=== PATIENT | female | born 1970 | race Two or more races ===

== ENCOUNTER 2019-05-01 15:13 | Emergency (ER) | payer BC, OTHER ==
[~2019-05-01] VITALS: Ht 157.5 cm; Wt 81.6 kg
[2019-05-01] MEDS ORDERED: cloNIDine HCL 0.1 MG TAB PO ONE (15:30)
[2019-05-01 15:45] VITALS: BP 175/88
[2019-05-01 15:55] LABS: Basophils # (auto) 0 uL; Basophils % (auto) 0.6 % (0.0-2.0); Eosinophils # (auto) 0.1 uL; Eosinophils % (auto) 1.8 % (0.0-7.0); Hematocrit 34.8 % (36.0-46.0); Lymphocytes % (auto) 24.2 % (10.0-50.0); Mean Corpuscular Hemoglobin 25.1 pg (28.0-32.0); Mean Corpuscular Hgb Conc. 31.6 g/dL (32.0-36.0); Mean Corpuscular Volume 79.4 fL (80.0-100.0); Monocytes % (auto) 11.5 % (0.0-12.0); Neutrophils # (auto) 5.2 uL; Neutrophils % (auto) 61.9 % (37.0-80.0); Platelet Count (auto) 273 10^3/uL (140-450); Red Blood Cells 4.39 10^6/uL (4.0-5.20); Red Cell Distribution Width 18.4 % (11.8-14.3); White Blood Cell 8.4 10^3/uL (4.4-10.8)
[2019-05-01 16:09] LABS: INR 0.99 (0.9-1.15); Partial Thromboplastin Time 23.6 sec (23.64-32.05)
[2019-05-01 16:14] LABS: Albumin 3.9 g/dL (3.4-5.0); Anion Gap 5 (5-15); Blood Urea Nitrogen 10 mg/dL (7-18); Calcium 8.8 mg/dL (8.5-10.1); Carbon Dioxide 24 mmol/L (21-32); Chloride 109 mmol/L (98-107); Glucose 94 mg/dL (74-106); Sodium 138 mmol/L (136-145)
[2019-05-01 16:19] LABS: Alanine Aminotransferase 28 U/L (13-56); Alkaline Phosphatase 77 U/L (45-117); Aspartate Aminotransferase 18 U/L (15-37); BUN/Creatinine Ratio 17.5; Bilirubin, Total 0.3 mg/dL (0.2-1.0); GFR African American 146 mL/min; GFR Non-African American 121 mL/min; Total Protein 8.2 g/dL (6.4-8.2)
[2019-05-01 21:11] LABS: Urine Bacteria NONE SEEN /hpf (None Seen); Urine Blood Negative /uL (Negative); Urine Hyaline Cast FEW /lpf (0 - 2); Urine Mucus FEW (None Seen); Urine WBC 1 /hpf (0 - 5)
== END 2019-05-01 23:03 | disposition home or self-care (01) ==
LOC: ER 15:13
DX: R07.89 Other chest pain (principal); F41.9 Anxiety disorder, unspecified; I10 Essential (primary) hypertension
CPT/HCPCS: 36415; 80053; 81001; 83880; 84484; 85025; 85610; 85730; 93005

== ENCOUNTER 2020-08-26 09:53 | Emergency (ER) | payer OTHER ==
[~2020-08-26] VITALS: Ht 12.7 cm; Wt 90.7 kg
[2020-08-26 11:27] LABS: Basophils # (auto) 0 10 ^3/uL (0-0.2); Basophils % (auto) 0.5 % (0.0-2.0); Eosinophils # (auto) 0.1 10 ^3/uL (0-0.8); Eosinophils % (auto) 1.3 % (0.0-7.0); Hematocrit 33.4 % (36.0-46.0); Hemoglobin 10.9 g/dL (12.2-16.2); Lymphocytes # (auto) 1.7 10 ^3/uL (0.4-5.4); Lymphocytes % (auto) 19.1 % (10.0-50.0); Mean Corpuscular Hemoglobin 29.1 pg (28.0-32.0); Mean Corpuscular Hgb Conc. 32.6 g/dL (32.0-36.0); Mean Corpuscular Volume 89.3 fL (80.0-100.0); Monocytes # (auto) 0.6 10 ^3/uL (0-1.3); Neutrophils # (auto) 6.4 10 ^3/uL (1.6-8.6); Neutrophils % (auto) 72.1 % (37.0-80.0); Platelet Count (auto) 245 10^3/uL (140-450); Red Blood Cells 3.74 10^6/uL (4.0-5.20); Red Cell Distribution Width 13.9 % (11.8-14.3); White Blood Cell 8.9 10^3/uL (4.4-10.8)
[2020-08-26 12:09] LABS: Albumin 3.5 g/dL (3.4-5.0); Calcium 8.7 mg/dL (8.5-10.1); Potassium 4.1 mmol/L (3.5-5.1)
[2020-08-26 12:12] LABS: BUN/Creatinine Ratio 21.3; Bilirubin, Total 0.5 mg/dL (0.2-1.0); Total Protein 7.3 g/dL (6.4-8.2)
[2020-08-26 13:48] LABS: Urine Bacteria NONE SEEN /hpf (None Seen); Urine Blood 3+ /uL (Negative); Urine WBC 471 /hpf (0 - 5); Urine WBC Clumps PRESENT /hpf (None Seen)
[2020-08-26 14:48] VITALS: BP 148/82
== END 2020-08-26 14:51 | disposition home or self-care (01) ==
LOC: ER 09:53
DX: N93.9 Abnormal uterine and vaginal bleeding, unspecified (principal); N39.0 Urinary tract infection, site not specified
CPT/HCPCS: 36415; 80053; 81001; 84702; 85025

== ENCOUNTER 2024-04-06 17:45 | Emergency (ER) | payer OTHER ==
[~2024-04-06] VITALS: Ht 157.5 cm; Wt 83.0 kg
[~2024-04-06 17:45] MED LIST: POTA-36 PO
--- NOTE | 2024-04-06 17:59 | ECG ---
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
--- NOTE | 2024-04-06 18:05 | ED.PDOC ---
HPI Comments 54-year-old female who presents to the emergency department with generalized chest pain, worse in the left chest that started this morning. Patient states the chest pain feels like bones hurt , can not breathe. Pain radiates to her bilateral arms. It is currently 9/10. It has been getting worse and intermittent since this morning. She states no provocative or palliative factors. She reports she has had similar symptoms in the past when she was not taking her oral potassium and her potassium was low. She has not taken her potassium which she takes along with her antihypertensive medication for the past 4 days past medical history includes only hypertension. She denies history of DVT or PE. No family history of cardiac disease or PE. Patient is not a smoker, no recent procedure of surgery, no prolonged travel or immobilization recently, she has not take any hormonal supplements. Patient reports associated chills, shortness of breath, cough, nausea and constipation. She denies syncope, flu or cold-like symptoms, vomiting or diarrhea, UTI symptoms, lower extremity edema. No injury or other known inciting factor. Chief Complaint: Chest Pain Time Seen by MD: 17:50 Primary Care Provider: CHARLES Allergies: Coded Allergies: NO KNOWN ALLERGIES (Unverified , 05/01/19) Home Meds Active Scripts Potassium Chloride (POTASSIUM CHLORIDE CR) 10 Meq Tb, 1 TAB PO DAILY for 10 Days, #10 TAB 0 Refills Prov:DORINA GARCIA PAC 06/17/23 Review of Systems: As stated in HPI. Vital Signs Vital Signs Date Time Temp Pulse Resp B/P (MAP) Pulse Ox O2 Delivery O2 Flow Rate FiO2 04/06/24 21:10 77 16 98 Room Air* 0 21 04/06/24 21:10 98.6 142/66 (91) 98.6 Physical Exam General: Awake, alert and oriented. No acute distress. Skin: Skin in warm, dry and intact. Appropriate color for ethnicity. HEENT: The head is normocephalic and atraumatic. Conjunctivae are clear without exudates or hemorrhage. Sclera is non-icteric. EOM are intact. No signs of nystagmus. Eyelids are normal in appearance without swelling or lesions. Oral mucosa is pink and moist Neck: The neck is supple with normal range of motion. No JVD. Cardiac: Rapid rate, regular rhythm. No murmurs, gallops, or rubs are auscultated. Respiratory: No signs of respiratory distress. Lung sounds are clear in all lobes bilaterally without rales, ronchi, or wheezes. Abdominal: Abdomen is soft, non-tender without distention. Bowel sounds are present and normoactive in all four quadrants. Extremities: Upper and lower extremities are atraumatic in appearance without deformity or edema. Neurological: The patient is awake, alert and oriented to person, place, and time with normal speech. Speech is clear. There is no facial asymmetry. Psychiatric: Appropriate mood and affect. Good judgement and insight. No visual or auditory hallucinations. 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 PLUG SHAPER History: No Pertinent HAND PLUG SHAPER History Family History Family History: Reviewed,noncontributory to illness, No family hx of Cancer, No family hx of DM, No family hx of Heart jadiel, No family hx of HTN, No family hx ofKidney jadiel, No family hx of Liver jadiel, No family hx of Lung jadiel, No family hx of Stroke Social History Smoker: Non-Smoker Alcohol: Denies ETOH Use Drugs: Denies Drug Use Lives In: Home EKG EKG : Comments EKG independent interpretation, sinus tachycardia at a rate of 109, QTC 440 QRS axis 15 MD interval 157, nonspecific ST changes, no STEMI Was a procedure done? Was a procedure done?: No CP Differential Dx Differential Diagnosis: Other (Differential diagnoses considered include acute ischemic coronary syndrome, aortic dissection, cardiac tamponade, mediastinitis, pulmonary embolus, pneumothorax, tension pneumothorax, esophageal rupture, co ronary artery vasospasm, myocarditis, pericarditis, pneumonia, pulmonary edema, esophageal tear, pancreatitis, aortic stenosis, dilated cardiomyopathy, hypertrophic cardiomyopathy, mitral valve prolapse, malignancy, pleuritis, pneumomediastinum, primary pulmonary hypertension, cholecystitis, esophageal spasm, esophagus, gastritis, GERD, peptic ulcer disease, costochondritis, fibrom yalgia, rib fracture, herpes zoster, radicular syndromes, thoracic outlet syndrome, somatization.) X-Ray, Labs, Meds, VS Vital Signs Date Time Temp Pulse Resp B/P (MAP) Pulse Ox O2 Delivery O2 Flow Rate FiO2 04/06/24 21:10 77 16 98 Room Air* 0 21 04/06/24 21:10 98.6 77 16 142/66 (91) 98 98.6 04/06/24 21:08 98.6 1/16/25 20:37 73 04/06/24 18:38 86 04/06/24 18:11 102 18 143/71 (95) 94 04/06/24 18:11 102 04/06/24 17:57 98.1 115 18 132/97 (109) 98 04/06/24 17:57 109 Lab Test 04/06/24 21:00 04/06/24 19:11 04/06/24 18:05 Range/Units Troponin I High Sensitivity 25 26 27 </=34 ng/L White Blood Count 16.7 H 4.4-10.8 10^3/uL Red Blood Count 4.83 4.0-5.20 10^6/uL Hemoglobin 15.0 12.2-16.2 g/dL Hematocrit 43.5 36.0-46.0 % Mean Corpuscular Volume 90.2 80.0-100.0 fL Mean Corpuscular Hemoglobin 31.1 28.0-32.0 pg Mean Corpuscular Hemoglobin Concent 34.5 32.0-36.0 g/dL Red Cell Distribution Width 13.6 11.8-14.3 % Platelet Count 289 140-450 10^3/uL Mean Platelet Volume 9.1 6.9-10.8 fL Neutrophils (%) (Auto) 75.9 37.0-80.0 % Lymphocytes (%) (Auto) 14.6 10.0-50.0 % Monocytes (%) (Auto) 7.6 0.0-12.0 % Eosinophils (%) (Auto) 1.5 0.0-7.0 % Basophils (%) (Auto) 0.4 0.0-2.0 % Neutrophils # (Auto) 12.7 H 1.6-8.6 10 ^3/uL Lymphocytes # (Auto) 2.4 0.4-5.4 10 ^3/uL Monocytes # (Auto) 1.3 0-1.3 10 ^3/uL Eosinophils # (Auto) 0.2 0-0.8 10 ^3/uL Basophils # (Auto) 0.1 0-0.2 10 ^3/uL Nucleated Red Blood Cells 0.1 % Sodium Level 137 136-145 mmol/L Potassium Level 3.1 L 3.5-5.1 mmol/L Chloride Level 99 98-107 mmol/L Carbon Dioxide Level 29 20-31 mmol/L Anion Gap 9 5-15 Blood Urea Nitrogen 7 L 9-23 mg/dL Creatinine 0.70 0.550-1.02 mg/dL Glomerular Filtration Rate Calc 104 >90 mL/min BUN/Creatinine Ratio 10.0 10.0-20.0 Serum Glucose 122 H 74-106 mg/dL Calcium Level 10.4 8.7-10.4 mg/dL Magnesium Level 1.9 1.6-2.6 mg/dL Total Bilirubin 1.0 0.2-1.0 mg/dL Aspartate Amino Transferase (AST) 32 13-40 U/L Alanine Aminotransferase (ALT) 72 H 7-40 U/L Alkaline Phosphatase 102 46-116 U/L Total Protein 8.2 5.7-8.2 g/dL Albumin 4.9 H 3.2-4.8 g/dL Current Medications Medications (Trade) Dose Ordered Sig/See Route Start Time Stop Time Status Last Admin Acetaminophen (Tylenol Tablet Or Capsule) 1,000 mg ONCE ONCE PO 04/06/24 18:00 04/06/24 18:01 DC 04/06/24 18:08 Aspirin 324 mg ONCE ONCE PO 04/06/24 18:00 04/06/24 18:01 DC 04/06/24 18:07 Potassium Bicarbonate (Klor-Con/Ef) 50 meq ONCE ONCE PO 04/06/24 21:00 04/06/24 21:01 DC 04/06/24 21:08 Time of 1ST Reevaluation: 23:59 Reevaluation 1ST: Improved Patient Education/Counseling: Need For Follow Up Family Education/Counseling: No Family Present Departure 1 Departure Time of Disposition: 23:53 Impression: Primary Impression: Chest pain Additional Impressions: Leukocytosis Hypokalemia Disposition: 01 HOME / SELF CARE / HOMELESS Condition: Stable Additional Instructions: ED DISCHARGE INSTRUCTIONS Instructions: Please read all instructions provided in this packet carefully. Take your potassium as prescribed. Although you have been discharged from the Emergency Department, this does not mean that you have a "clean bill of health". No definitive diagnosis for your symptoms has been made today. It is possible that you are in the process of developing a serious illness. This is why you must return to the ED without fail if any new or worsening symptoms (especially if your symptoms include chest pain, trouble breathing, abdominal pain, fever, headache, confusion, trouble seeing, or trouble walking) It is also very important that you see a primary care doctor within the next 3-5 days to follow up. Your white blood cell count was elevated today. You will need to have this rechecked and investigated by your primary care provider. If you are unable to get an appointment, return to the ED for re-evaluation. CHEST PAIN EDUCATION There are many things that can cause chest pain. Some are not serious and will get better on their own in a few days. But some kinds of chest pain need more testing and treatment. Your doctor may have recommended a follow-up visit in the next few days. If you are not getting better, you may need more tests or treatment. Even though your doctor has released you, you still need to watch for any problems. The doctor carefully checked you, but sometimes problems can develop later. If you have new symptoms or if your symptoms do not get better, get medical care right away. If you have worse or different chest pain or pressure that lasts more than 5 minutes or you passed out (lost consciousness), call 911 or seek other emergency help right away. A medical visit is only one step in your treatment. Even if you feel better, you still need to do what your doctor recommends, such as going to all suggested follow-up appointments and taking medicines exactly as directed. This will help you recover and help prevent future problems. How can you care for yourself at home? Rest until you feel better. Take your medicine exactly as prescribed. Call your doctor if you think you are having a problem with your medicine. Do not drive after taking a prescription pain medicine. When should you call for help? Call 911 if: You passed out (lost consciousness). You have severe difficulty breathing. You have symptoms of a heart attack. These may include: Chest pain or pressure, or a strange feeling in your chest. Sweating. Shortness of breath. Nausea or vomiting. Pain, pressure, or a strange feeling in your back, neck, jaw, or upper belly or in one or both shoulders or arms. Lightheadedness or sudden weakness. A fast or irregular heartbeat. After you call 911, the maintenance equipment operator may tell you to chew 1 adult-strength or 2 to 4 low-dose aspirin. Wait for an ambulance. Do not try to drive yourself. Call your doctor now or seek immediate medical care if: You have any trouble breathing. You have new or different chest pain. You are dizzy or lightheaded, or you feel like you may faint. Watch closely for changes in your health, and be sure to contact your doctor if you do not get better as expected. Current as of: October 20, 2023 Author: JAAMR Gambino Staff? Comments 54-year-old female with chest pain. EKG negative for signs of ischemia. High sensitivity troponin negative, at baseline from previous. CXR shows no acute process. CT angiogram negative for pulmonary embolism. Presentation not suggestive of acute coronary syndrome, pulmonary embolism or aortic dissection. Patient improved at time of discharge. No hypoxia, respiratory distress or dyspnea at discharge. Patient able to ambulate without difficulty. Leukocytosis of unknown origin. Patient well-appearing, nontoxic. Advised prompt follow-up with PCP, return to the ED with any new, worsening or concerning symptoms. Extensive evaluation was performed in attempt to identify or rule out: (See differential diagnosis section) The following tests were ordered, and results were reviewed by me: (See diagnostic results section) The following test were independently interpreted by me: Chest x-ray-no acute disease, EKG I reviewed and agreed with the following test results read by other providers: Chest x-ray I reviewed the following notes from the pt's past medical encounters: Encounter 05/2023 for chest pain Additional information was gathered from interviewing the following independent historians: N/A Discussion of management or test interpretation with external physician/other qualified health child adolescent care: N/A Addressed an acute or chronic illness that poses a threat to life or bodily function: Hypokalemia, chest pain Decision regarding hospitalization or escalation of hospital level of care: Risks and benefits of admission for further treatment of patient's condition was considered however due to patient's stable condition patient will be discharged to follow up closely or return to care for worsening of condition or inability to follow up. Critical Care Note Critical Care Time?: No Stability Stability form required: No Heart Score Heart Score: Heart Score Response (Comments) Value History Slightly Suspicious 0 EKG Repolarization Disturb 1 Age 45-64 1 Risk Factors No known risk factors 0 Troponin Normal limit 0 Total 2 ILAN RADER MD Apr 06, 2024 18:05
[2024-04-06] MEDS: ASPirin 81 mg TAB PO ONE (18:07)
[2024-04-06] MEDS: ACETAMINOPHEN 500 MG TAB or CAP PO ONE (18:08)
--- NOTE | 2024-04-06 18:16 | DVH ---
CHEST RADIOGRAPH Indication: CP Technique: Single frontal view of the chest was obtained COMPARISON: XY CHEST PORTABLE on DOS: 06/17/23 FINDINGS: Lines and Tubes: None Lungs: Clear Pleura: No effusion. No pneumothorax. Cardiomediastinal contours: Unremarkable Bones: Unremarkable IMPRESSION: 1. No acute disease.
[2024-04-06 18:19] LABS: Basophils # (auto) 0.1 10 ^3/uL (0-0.2); Basophils % (auto) 0.4 % (0.0-2.0); Eosinophils # (auto) 0.2 10 ^3/uL (0-0.8); Eosinophils % (auto) 1.5 % (0.0-7.0); Hematocrit 43.5 % (36.0-46.0); Lymphocytes # (auto) 2.4 10 ^3/uL (0.4-5.4); Lymphocytes % (auto) 14.6 % (10.0-50.0); Mean Corpuscular Hemoglobin 31.1 pg (28.0-32.0); Mean Corpuscular Hgb Conc. 34.5 g/dL (32.0-36.0); Mean Corpuscular Volume 90.2 fL (80.0-100.0); Monocytes # (auto) 1.3 10 ^3/uL (0-1.3); Monocytes % (auto) 7.6 % (0.0-12.0); Neutrophils # (auto) 12.7 10 ^3/uL (1.6-8.6); Neutrophils % (auto) 75.9 % (37.0-80.0); Nucleated Red Blood Cells % 0.1 %; Platelet Count (auto) 289 10^3/uL (140-450); Red Blood Cells 4.83 10^6/uL (4.0-5.20); Red Cell Distribution Width 13.6 % (11.8-14.3); White Blood Cell 16.7 10^3/uL (4.4-10.8)
[2024-04-06 18:32] LABS: Alkaline Phosphatase 102 U/L (46-116); Anion Gap 9 (5-15); Aspartate Aminotransferase 32 U/L (13-40); Calcium 10.4 mg/dL (8.7-10.4); Carbon Dioxide 29 mmol/L (20-31); Chloride 99 mmol/L (98-107); Sodium 137 mmol/L (136-145)
[2024-04-06 18:33] LABS: Total Protein 8.2 g/dL (5.7-8.2)
[2024-04-06 18:39] LABS: Alanine Aminotransferase 72 U/L (7-40); Blood Urea Nitrogen 7 mg/dL (9-23); Glucose 122 mg/dL (74-106); Potassium 3.1 mmol/L (3.5-5.1)
[2024-04-06 18:53] LABS: Albumin 4.9 g/dL (3.2-4.8)
--- NOTE | 2024-04-06 19:08 | ECG ---
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
[2024-04-06] MEDS: POTASSIUM EFFERVESENT TAB 25 MEQ PO ONE (21:08)
[2024-04-06 21:10] VITALS: PULSE 77; RESP 16; O2SAT 98
[2024-04-06] MEDS: IOHEXOL 350 MG/ML 100ML IJ ONE (22:55)
--- NOTE | 2024-04-06 23:11 | DVH ---
CTA Chest with intravenous contrast INDICATION: CP, SOB, tachycardia, r/o PE COMPARISON: None TECHNIQUE: Multidetector spiral CTA of the chest was performed of the chest with intravenous contrast . PULMONARY ANGIOGRAPHY PROTOCOL was utilized using a bolus-tracking technique centered on the main p ulmonary artery. Axial, coronal and sagittal multiplanar and MIP reformats were performed. Radiation Dose : 1. Chest: CTDI volume is 18 mGy. Dose-length product is 626 mGy*cm The dose indicators for CT are the volume Computed Tomography (CT) Dose Index (CTDIvol) and the Dose Length Product (DLP), and are measured in units of mGy and mGy-cm, respectively. These indicators are not patient dose, but values generated from the CT scanner acquisition factors. The report includes radiation exposure data for exposures received during this examination. Findings: Pulmonary artery: No pulmonary embolism Lower neck: Normal thyroid. Lungs: No focal consolidation, pleural effusion or pneumothorax. Heart/Vascular Structures: Normal heart size. No pericardial effusion. Lymph Nodes: No adenopathy Pleura: No pleural effusion or significant pneumothorax. Musculoskeletal: No acute osseous abnormality. Soft tissues: Normal. Upper abdomen: Limited portions of the upper abdomen are unremarkable. Hepatic steatosis. IMPRESSION: 1. No pulmonary embolism. 2. No acute thoracic finding.
[2024-04-07 00:15] VITALS: BP 136/58; PULSE 75; RESP 16; TEMP 98.1; O2SAT 97
--- NOTE | 2024-04-07 07:04 | ECG ---
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
--- NOTE | 2024-04-07 15:27 | ECG ---
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
== END 2024-04-07 00:19 | disposition home or self-care (01) ==
LOC: ER 17:45
DX: E87.6 Hypokalemia (principal); D72.829 Elevated white blood cell count, unspecified; R07.89 Other chest pain; I10 Essential (primary) hypertension; Z79.899 Other long term (current) drug therapy
CPT/HCPCS: 36415; 71045; 71275; 80053; 83735; 84484; 85025; 93005; 99285; Q9967